=== PATIENT | male | born 1960 | race Caucasian/White ===

== ENCOUNTER → 2016-09-14 | Outpatient (CLI) | payer MEDICARE ==
--- NOTE | 2016-09-15 00:51 | RADIOLOGY REPORT (SQ) ---
EXAM DESCRIPTION: MRI LUMBAR SPINE WITHOUT COMPLETED DATE/TIME: 09/14/2016 10:35 am REASON FOR STUDY: RADICULOPATHY LUMBAR REGION M54.16 RADICULOPATHY, LUMBAR REGION COMPARISON: None. TECHNIQUE: Sagittal and Axial imaging includes T1, T2, STIR and gradient echo sequences. Coronal T2/ HASTE imaging. LIMITATIONS: None. FINDINGS: VISUALIZED UPPER ABDOMEN: Limited evaluation. No acute or suspicious findings suggested. SEGMENTATION: No transitional anatomy. The lowest well-developed disc space is labeled L5-S1. ALIGNMENT: Anatomic. VERTEBRAE: Intact. BONE MARROW: Normal. No marrow replacement or reactive changes. DISC SIGNAL: Generalized loss height and T2 signal. POSTERIOR ELEMENTS: Generally intact. No pars defect evident. HARDWARE: None in the spine. CORD AND CONUS: Normal in size and signal intensity. Conus at the appropriate level. SOFT TISSUES: No aortic aneurysm seen. No bulky retroperitoneal adenopathy or mass. No paraspinal mas s or fluid. L1-L2: Disc bulge. Minimal narrowing of the exit foramina. L2-L3: Disc bulge. Mild narrowing of the exit foramina. L3-L4: Generalized disc bulge with asymmetric left lateral protrusion. Mild facet arthropathy. Mild er moderate narrowing of the left exit foramina. Mild central canal stenosis. L4-L5: Central left paracentral disc protrusion with flattening of the anterior thecal sac. Facet an d ligamentous hypertrophy left greater than right. Marked narrowing of the left exit foramina with d eviation of the exiting L4 root. Deviation of the intrathecal roots. L5-S1: Generalized disc bulge and posterior element overgrowth with mild narrowing of the exit forami na right greater than left. LOWER THORACIC: Incompletely imaged. No stenosis seen. SACRUM: Visualized upper sacrum intact. OTHER: No other significant findings. IMPRESSION: Multilevel spondylosis most prominent finding L4-5 where there is central left paracentr al disc protrusion and posterior element overgrowth resulting marked narrowing of the left exit cristy yao with deviation of the exiting L4 root. There is more central deviation intrathecal roots. Moder ate central canal stenosis. Less prominent finding at L3-4 with [id number] narrowing of left exit foramina and mild central canal stenosis. TECHNICAL DOCUMENTATION: JOB ID: [id number]- All Rights Reserved
== END ==
LOC: RAD 09:45
PROVIDERS: ATTEND Nurse Practitioner
DX: M54.16 Radiculopathy, lumbar region (principal)
CPT/HCPCS: 72148

== ENCOUNTER → 2017-07-18 | Outpatient (CLI) | payer MEDICARE ==
--- NOTE | 2017-07-18 10:59 | RADIOLOGY REPORT (SQ) ---
EXAM DESCRIPTION: CT ABD/PELVIS WITH IV ORAL COMPLETED DATE/TIME: 07/18/2017 9:17 am REASON FOR STUDY: PERIUMBILICAL ABDOMINAL PAIN R10.33 PERIUMBILICAL PAIN COMPARISON: None. TECHNIQUE: CT scan of the abdomen and pelvis performed using helical scanning technique with dynamic intravenous contrast injection. Oral contrast. Images reviewed with lung, soft tissue, and bone win dows. Reconstructed coronal and sagittal MPR images reviewed. Delayed images for evaluation of the ur inary system also acquired. All images stored on PACS. All CT scanners at this facility use dose modulation, iterative reconstruction, and/or weight based d osing when appropriate to reduce radiation dose to as low as reasonably achievable (ALARA). [facility]: Dose Right [facility]: CareDose [facility]: Dose Right [facility]: Teradose 4D [facility]: Arkadium CONTRAST TYPE AND DOSE: contrast/concentration: Isovue 370.00 mg/ml; Total Contrast Delivered: 100.0 ml; Total Saline Delivered: 72.1 ml RENAL FUNCTION: Creatinine 0.9 RADIATION DOSE: CT Rad equipment meets quality standard of care and radiation dose reduction techniq ues were employed. CTDIvol: 24.1 - 24.9 mGy. DLP: 2676 mGy-cm.. LIMITATIONS: None. FINDINGS: LOWER CHEST: No significant findings. No nodules or infiltrates. LIVER: Normal size. No masses. No dilated ducts. SPLEEN: Normal size. No focal lesions. PANCREAS: No masses. No significant calcifications. No adjacent inflammation or peripancreatic fluid collections. Pancreatic duct not dilated. GALLBLADDER: Surgically absent. ADRENAL GLANDS: No significant masses or asymmetry. RIGHT KIDNEY AND URETER: No solid masses. A couple of small nonobstructing intrarenal calculi are s uggested. No hydronephrosis or hydroureter. LEFT KIDNEY AND URETER: No solid masses. A nonobstructing intrarenal calculus is present. No hydr onephrosis or hydroureter. AORTA AND VESSELS: No aneurysm. No dissection. Renal arteries, SMA, celiac without stenosis. RETROPERITONEUM: No retroperitoneal adenopathy, hemorrhage or masses. BOWEL AND PERITONEAL CAVITY: No obvious bowel masses. Radiopaque suture at the the gastroesophageal junction. Sigmoid diverticulosis. There is apparent thickening of a segment of the distal sigmoid c olon. APPENDIX: Normal. PELVIS: No mass. No free fluid. Normal bladder. ABDOMINAL WALL: Midline inflammatory changes are present. A small fluid collection is suggested on i mage 53 series 5. BONES: Degenerative disc changes. Mild thoracolumbar spondylosis. OTHER: No other significant finding. IMPRESSION: 1. There are apparent inflammatory changes versus scarring in the midline relating to p atient's ventral hernia repair. A small abscess cannot be excluded. 2. There are some small nonobstructing intrarenal calculi. 3. Diverticulosis coli. There is apparent thickening of a segment of the sigmoid there could sugges t inflammation, but could merely represent incomplete distention. 4. Degenerative disc disease and spondylosis. TECHNICAL DOCUMENTATION: JOB ID: [id number] Quality ID # [id number]: Final reports with documentation of one or more dose reduction techniques (e.g., Au tomated exposure control, adjustment of the mA and/or kV according to patient size, use of iterative reconstruction technique) 2010 [employer] All Rights Reserved Reading location - IP/workstation name: [email or web address]
== END ==
LOC: RAD 08:41
PROVIDERS: ATTEND Surgery
DX: R10.33 Periumbilical pain (principal); K57.30 Diverticulosis of large intestine without perforation or abscess without bleeding; N20.0 Calculus of kidney; M47.895 Other spondylosis, thoracolumbar region
CPT/HCPCS: 74177; 82565

== ENCOUNTER 2018-08-28 06:51 | Emergency (ER) | payer MEDICARE ==
[2018-08-28 07:08] VITALS: BP 155/90
--- NOTE | 2018-08-28 09:41 | ER Document Report ---
ED General - General Chief Complaint: Rash Stated Complaint: RASH Time Seen by Provider: 08/28/18 09:16 TRAVEL OUTSIDE OF THE [place] IN LAST 30 DAYS: No - HPI Notes: Patient is a 57-year-old male who presents to the emergency department for evaluation of a rash. He states this started on his hands and legs 5 or 6 days ago. [place] in [place]. It seems similar to poison ashley that he has had in the past. No other family members have any similar rashes. He denies any swelling in his mouth, lips, tongue. No difficulty breathing. He had some leftover cream from a recent bout with poison ashley, but states he is lost it and it does not seem to be helping anyway. - Related Data Allergies/Adverse Reactions: No Known Allergies Allergy (Unverified 08/28/18 08:21) Past Medical History - General Information source: Patient - Social History Smoking Status: Never Smoker Frequency of alcohol use: None Drug Abuse: None Family History: Reviewed & Not Pertinent Patient has suicidal ideation: No Patient has homicidal ideation: No Renal/ Medical History: Denies: Hx Peritoneal Dialysis Musculoskeletal Medical History: Reports Other - Chronic pain Past Surgical History: Reports: Hx Abdominal Surgery - hernia repair, gastric bypass, Hx Cholecystectomy Review of Systems - Review of Systems Constitutional: No symptoms reported EENT: No symptoms reported Cardiovascular: No symptoms reported Respiratory: No symptoms reported Gastrointestinal: No symptoms reported Genitourinary: No symptoms reported Musculoskeletal: No symptoms reported Skin: See HPI Neurological/Psychological: No symptoms reported Physical Exam - Vital signs Vitals: Temp Pulse Resp BP Pulse Ox 98.2 F 87 18 155/90 H 96 08/28/18 07:02 08/28/18 07:02 08/28/18 07:02 08/28/18 07:02 08/28/18 07:02 - Notes Notes: Patient is a very pleasant 57-year-old male who appears her stated age in no acute distress. Head is normal cephalic and atraumatic. Pupils are equal round, reactive to light. Oral mucosa is moist. Heart is regular rate and rhythm, lungs are clear to all station bilaterally. Examination of the skin yields vesicular rash, linear and certain locations, noted on the dorsum of the hands, and bilateral lower extremities. Neurovascularly intact to all 4 extremities. Course - Re-evaluation Re-evalutation: 08/28/18 09:45 Patient presents emergency department for evaluation of a rash. His findings are most consistent with a contact dermatitis. We will go ahead and treat him with steroids. The importance of finishing these medications was stressed to the patient. He is also told to keep the areas clean, watch for signs of secondary infection. He is to return to the ED with worsening or new concerning symptoms of any sort. - Vital Signs Vital signs: Temp Pulse Resp BP Pulse Ox 98.2 F 87 18 155/90 H 96 08/28/18 07:02 08/28/18 07:02 08/28/18 07:02 08/28/18 07:02 08/28/18 07:02 Discharge - Discharge Clinical Impression: Rhus dermatitis Condition: Stable Disposition: HOME, SELF-CARE Instructions: Eris Perez ([facility]) Additional Instructions: Keep rash clean with soap and water. Take all the prednisone as directed until it is gone. You can continue to use topical preparations like hydrocortisone as needed for symptoms. Also you can use utle-yal-iwlvaln antihistamines, such as Benadryl, Claritin, as needed for itching. Follow-up with your doctor next week. If you develop worsening or new concerning symptoms of any sort, return immediately to the emergency department for reevaluation. Prescriptions: RX: Betamethasone Dipropionate 15 gm TP BID #1 cream..g. RX: Prednisone [Deltasone 20 mg Tablet] See Protocol PO DAILY 5 Days #20 tablet
== END 2018-08-28 10:11 | disposition home or self-care (01) ==
LOC: ER 06:51
DX: L23.7 Allergic contact dermatitis due to plants, except food (principal)
CPT/HCPCS: 99282